=== PATIENT | female | born 1965 | race Caucasian/White ===

== ENCOUNTER 2017-05-07 06:34 | Day surgery (SDC) | payer BC, MEDICAID ==
[2017-05-07] MEDS ORDERED: Propofol 200 MG/20 ML SDV ONE (07:18)
[2017-05-07] MEDS ORDERED: Midazolam 1 MG/ML 2 ML SDV ONE (07:18)
[2017-05-07] MEDS ORDERED: fentaNYL 100 MCG/2 ML SDV ONE (07:18)
[2017-05-07] MEDS ORDERED: Barium Sulfate 105% w/v Susp 1,900 ML Bottle PO ONE (10:02)
[2017-05-07] MEDS ORDERED: Dextrose 5%-Lactated Ringers 1,000 ML IV SCH (10:30)
[2017-05-07 12:05] VITALS: BP 144/94
--- NOTE | 2017-05-07 12:54 | CR ---
Barium Enema Comp INDICATION: incomplete colonoscopy FINDINGS: Single contrast barium enema with dynamic manual compression under real-time fluoroscopy. M oderate tortuosity of the sigmoid colon. No evidence for polyp, mass, or mucosal ulceration. Moderate scattered colonic diverticula. Exam otherwise unremarkable. IMPRESSION: Moderate scattered colonic diverticula.
--- NOTE | 2017-05-13 11:04 | OR ---
DATE OF PROCEDURE: 05/07/2017 PREOPERATIVE DIAGNOSIS: Indications for screening colonoscopy. POSTOPERATIVE DIAGNOSIS: Incomplete screening colonoscopy with normal rectum and distal sigmoid colon. OPERATIVE PROCEDURE: Flexible colonoscopy (incomplete) ([id number]). ANESTHESIA: IV sedation. INDICATION FOR PROCEDURE: This is a 51-year-old presenting for a screening colonoscopy. The plan is to proceed with a flexible colonoscopy with biopsies and/or polypectomy as indicated. Potential risks including bleeding and perforation were discussed, and the patient wishes to proceed. DETAILS OF PROCEDURE: The patient was taken to the operating room and placed in a left lateral decubitus position. IV sedation was administered after which the initial digital rectal exam was performed and was unremarkable. Colonoscope was then passed into the rectum with retroflexion revealing uncomplicated hemorrhoidal columns. The scope was then passed roughly to around 30 cm, beyond that the scope could never be passed despite various maneuvers and approaches. This appeared to be most likely related to adhesions related to a previous pelvic surgery which included hysterectomy. After multiple attempts to pass the scope beyond that point were unsuccessful, a decision was made to complete the procedure. The prep to that level was good and no abnormalities were noted to the level of 30 cm. The scope was withdrawn and the above findings were reconfirmed. The patient was then sent for a barium enema, which showed no significant pathology. The patient was subsequently discharged home. Recommendation would be to repeat the colonoscopy or barium enema in 10 years for followup. Jacek Juarez MD /[id number]
== END 2017-05-07 12:10 | disposition home or self-care (01) ==
LOC: JP.SDS 06:34
PROVIDERS: ATTEND Surgery
DX: Z12.11 Encounter for screening for malignant neoplasm of colon (principal); K64.9 Unspecified hemorrhoids; I10 Essential (primary) hypertension; E03.9 Hypothyroidism, unspecified; Z90.710 Acquired absence of both cervix and uterus
CPT/HCPCS: 45330; 74270; J2250; J2704; J3010; J7042

== ENCOUNTER 2022-10-23 09:21 | Emergency (ER) | payer BC ==
[2022-10-23] MEDS ORDERED: Sodium Chloride 0.9% 10 ML Syringe FLUSH PRN (10:38)
[2022-10-23] MEDS ORDERED: Sodium Chloride 0.9% 1,000 ML IV ONE (10:41)
[2022-10-23 11:10] LABS: ESTIMATED GFR 53 mL/min (>60)
[2022-10-23] MEDS ORDERED: Iopamidol 612 MG/ML 100 ML Bottle IV ONE (11:29)
[2022-10-23] MEDS ORDERED: Sodium Chloride 0.9% 50 ML IV SCH (11:30)
[2022-10-23] MEDS ORDERED: Potassium Chloride 10 MEQ in Premix Bag 1 BAG IV SCH (12:00)
[2022-10-23 12:04] VITALS: BP 101/68; PULSE 104
[2022-10-23] MEDS ORDERED: Magnesium Sulfate/Water 2 GM in Premix Bag 1 BAG IV ONE (12:09)
[2022-10-23] MEDS ORDERED: Potassium Chloride 10 MEQ in Premix Bag 1 BAG IV ONE (13:30)
[2022-10-23] MEDS ORDERED: Potassium Chloride 20 MEQ Tab.ER PO ONE (13:47)
== END 2022-10-23 14:25 | disposition home or self-care (01) ==
LOC: JP.ED 09:21
DX: R11.2 Nausea with vomiting, unspecified (principal); N05.9 Unspecified nephritic syndrome with unspecified morphologic changes; R80.9 Proteinuria, unspecified; E87.6 Hypokalemia; E83.42 Hypomagnesemia; I10 Essential (primary) hypertension; Z79.82 Long term (current) use of aspirin; Z79.899 Other long term (current) drug therapy
CPT/HCPCS: 36415; 74177; 80053; 81001; 83605; 83690; 83735; 85025; 86038; 86140; 93005; 96361; 96365; 96367; 96368; 99284; A9270; J3475; J3480; J3490; J7030; Q9967